=== PATIENT | male | born 1995 | race Two or more races ===

== ENCOUNTER 2017-10-31 14:31 | Emergency (ER) | payer SELFPAY ==
[~2017-10-31] VITALS: Ht 175.3 cm; Wt 95.3 kg
[~2017-10-31 14:31] MED LIST: ERYTHROMYCIN3.5 GM RIGHT EYE; NKM
[2017-10-31 14:45] VITALS: BP 135/81
--- NOTE | 2017-10-31 14:57 | Emergency Room Report ---
History of Present Illness General Chief Complaint: General Complaint Source: Patient Present Illness HPI 22-year-old male presents to the emergency department complaining of progressive muffled hearing in the bilateral ears 4 days. Patient denies pain he denies recent trauma or fall. Patient denies tinnitus. Patient states that he recently got over a upper respiratory infection. Patient reports continued nasal congestion. He denies discharge from the ears or swollen tender lymph nodes. Patient denies neck pain, fevers or chills. Patient denies problems appearing in the past he states that it feels as though he is under water/ muffled hearing however he was able to hear. Denies CP, Palpitations, LOC, AMS, dizziness, Changes in Vision, Sensation, paresthesias, or a sudden severe headache. Allergies: Coded Allergies: No Known Allergies (Unverified , 07/12/16) Patient History Past Medical History: see triage record Past Surgical History: none Pertinent Family History: none Reviewed Nursing Documentation: PMH: Agreed, PSxH: Agreed Nursing Documentation-PMH Hx Asthma: Yes Review of Systems All Other Systems: negative except mentioned in HPI Physical Exam Vital Signs Date Time Temp Pulse Resp B/P (MAP) Pulse Ox O2 Delivery O2 Flow Rate FiO2 10/31/17 14:39 99.2 81 17 135/81 96 Room Air 99.1 Sp02 EP Interpretation: reviewed, normal General Appearance: no apparent distress, alert, GCS 15, non-toxic Head: normocephalic, atraumatic Eyes: bilateral eye normal inspection, bilateral eye PERRL ENT: hearing grossly normal, normal voice, uvula midline, moist mucus membranes , nasal congestion, other - bilateral membranes bulging, right>left small amount of serous collection in the right. No erythema , no external ear tenderness, no LAD. Neck: full range of motion, no meningismus, no bony tend Respiratory: chest non-tender, lungs clear, normal breath sounds, no wheezing, speaking full sentences Cardiovascular #1: regular rate, rhythm Musculoskeletal: back normal, gait/station normal, normal range of motion, non- tender Neurologic: alert, oriented x3, responsive, motor strength/tone normal, sensory intact, speech normal, grossly normal Psychiatric: judgement/insight normal Skin: normal color, no rash, warm/dry, well hydrated Lymphatic: no adenopathy Medical Decision Making PA Attestation Dr. angela is my supervising Physician whom patient management has been discussed with. Diagnostic Impression: Primary Impression: Tympanic membrane disorder Qualified Codes: H73.93 - Unspecified disorder of tympanic membrane, bilateral Additional Impression: Acute serous otitis media of both ears without rupture ER Course 22-year-old male presents to the emergency department complaining of progressive muffled hearing in the bilateral ears 4 days. Patient denies pain he denies recent trauma or fall. Patient denies tinnitus. Patient states that he recently got over a upper respiratory infection. Patient reports continued nasal congestion. He denies discharge from the ears or swollen tender lymph nodes. Patient denies neck pain, fevers or chills. Patient denies problems appearing in the past he states that it feels as though he is under water/ muffled hearing however he was able to hear. Denies CP, Palpitations, LOC, AMS, dizziness, Changes in Vision, Sensation, paresthesias, or a sudden severe headache. Ddx considered but are not limited to OM, OE, mastoiditis, TM perforation, FB, conductive vs sensory hearing loss, excessive cerumen, serous accumulation just to name a few. Vital signs: are WNL, pt. is afebrile H&PE are most consistent with serous otitis, not infected and nasal congestion. ORDERS: none required at this time, the diagnosis is clinical -OTOSCOPY: bilateral membranes bulging, right>left small amount of serous collection in the right. No erythema , no external ear tenderness, no LAD. ED INTERVENTIONS: None required at this time. DISCHARGE: At this time pt. is stable for d/c to home. Will provide printed patient care instructions, and any necessary prescriptions. Care plan and follow up instructions have been discussed with the patient prior to discharge. RX: Conservative treatment with decongestants. Last Vital Signs Date Time Temp Pulse Resp B/P (MAP) Pulse Ox O2 Delivery O2 Flow Rate FiO2 10/31/17 14:45 99.1 81 17 135/81 96 Room Air 99.1 Disposition: HOME, SELF-CARE Condition: Stable Scripts Oxymetazoline HCl (Afrin) 15 Ml [place] 2 SPRAYS NASAL TWICE A DAY for 3 Days, #15 SPRAY Do Not Use For More Than 3 Days! Prov: Rowan Marti P.Sonya. 10/31/17 Loratadine/Pseudoephedrine (CLARITIN-D 12 HOUR TABLET) 1 Each Tab.er.12h 1 TAB ORAL EVERY 12 HOURS for 10 Days, #20 TAB Prov: Rowan Marti 10/31/17 Departure Forms: Return to Work Return to Work Date: Nov 01, 2017 Work Restrictions: None Return to Full Activity: Nov 01, 2017 Patient Instructions: Hearing Loss Additional Instructions: Take medications as directed. Follow up with a Primary Care Provider in 3-5 days, even if your symptoms have resolved. --Please review list of primary care clinics, if you do not already have a primary care provider Return sooner to ED if new symptoms occur, or current symptoms become worse. - Please note that this Emergency Department Report was dictated using [employer] mirror technology software, occasionally this can lead to erroneous entry secondary to interpretation by the dictation equipment. Rowan Marti Oct 31, 2017 14:57
[2017-10-31] MEDS ORDERED: AFRIN NASAL SPR30 ML NASAL (14:59)
[2017-10-31] MEDS ORDERED: CLARITIN-D 121 EAC1 ORAL (14:59)
[2017-10-31 15:04] VITALS: BP 135/81
== END 2017-10-31 15:05 | disposition home or self-care (01) ==
LOC: EMR 15:00
DX: H73.93 Unspecified disorder of tympanic membrane, bilateral (principal); H65.03 Acute serous otitis media, bilateral; J45.909 Unspecified asthma, uncomplicated
CPT/HCPCS: 99284